=== PATIENT | female | born 1990 | race Caucasian/White ===

== ENCOUNTER 2017-11-28 20:33 | Emergency (ER) | payer OTHER ==
[~2017-11-28] VITALS: Ht 170.2 cm; Wt 91.9 kg
[2017-11-28 20:41] VITALS: BP 127/89
== END 2017-11-28 22:10 | disposition home or self-care (01) ==
LOC: EME 20:33
DX: S92.502A Displaced unspecified fracture of left lesser toe(s), initial encounter for closed fracture (principal); S90.32XA Contusion of left foot, initial encounter; W22.03XA Walked into furniture, initial encounter
CPT/HCPCS: 73660; 99281; 99284